=== PATIENT | male | born 1945 ===

== ENCOUNTER 2022-09-28 10:13 | Inpatient (IN) | payer OTHER ==
[~2022-09-28] VITALS: Ht 180.3 cm; Wt 81.6 kg
[2022-10-04] MEDS ORDERED: FERROUS SULFAT325 MG (08:25)
[2022-10-04] MEDS ORDERED: PANTOPRAZOLE SO40 MG (08:25)
[2022-10-05] MEDS ORDERED: LEVOFLOXACIN500 MG PO (08:04)
[2022-10-05] MEDS ORDERED: PEPCID AC20 MG PO (08:04)
[2022-10-05] MEDS ORDERED: TRAM1TAB98 PO (08:04)
== END 2022-10-05 11:39 | disposition home or self-care (01) | DRG 334 ==
LOC: O/R 10-04 06:00 → SURH 10-04 06:00
PROVIDERS: ADMIT Surgery; ATTEND Surgery
PROC: 0DJD8ZZ Inspection of Lower Intestinal Tract, Via Natural or Artificial Opening Endoscopic (ICD-10-PCS; 2022-10-04)
PROC: 3E0T3BZ Introduction of Anesthetic Agent into Peripheral Nerves and Plexi, Percutaneous Approach (ICD-10-PCS; 2022-10-04)
PROC: 0DBP4ZZ Excision of Rectum, Percutaneous Endoscopic Approach (ICD-10-PCS; principal; 2022-10-04 10:30)
DX: D12.8 Benign neoplasm of rectum (principal); K62.82 Dysplasia of anus; Z20.822 Contact with and (suspected) exposure to COVID-19
CPT/HCPCS: 0184T; 45300; 64430

== ENCOUNTER 2024-08-09 10:00 | Inpatient (IN) | payer OTHER ==
[~2024-08-09] VITALS: Ht 182.9 cm; Wt 77.6 kg
[~2024-08-09 10:00] MED LIST: FERROUS SULFAT325 MG; LEVOFLOXACIN500 MG PO; PANTOPRAZOLE SO40 MG; PEPCID AC20 MG PO; TRAM1TAB98 PO
[2024-08-09] MEDS ORDERED: CASODEX50 MG PO (12:37)
[2024-08-09] MEDS ORDERED: PEPCID AC20 MG PO (12:37)
[2024-08-09 12:43] VITALS: BP 200/110
[2024-08-09 12:44] VITALS: BP 180/100
[2024-08-16] MEDS ORDERED: POVIDONE-IODINE 118 ML BOTT TOP ONE (06:58)
[2024-08-16] MEDS ORDERED: LIDOCAINE HCL 1%/EPINEPHRINE 20ML VIAL IJ ONE (06:58)
[2024-08-16] MEDS ORDERED: DIBUCAINE 30 GM TUBE ONE (06:58)
[2024-08-16] MEDS ORDERED: HEMOSTATIC MATRIX 1 KIT KIT TOP ONE (06:58)
[2024-08-16] MEDS ORDERED: CEFTRIAXONE SODIUM 2,000 MG VIAL ONE (06:58)
[2024-08-16] MEDS ORDERED: BUPIVACAINE HCL/MPF 0.5% 30ML VIAL ONE (06:58)
[2024-08-16] MEDS ORDERED: METRONIDAZOLE/SODIUM CHLORIDE 500 MG/100 ML PIGGYBACK IV ONE (06:59)
[2024-08-16] MEDS ORDERED: DEXTROSE 50 % IN WATER 0.5 G/ML DISP.SYRIN IV PRN (08:30)
[2024-08-16] MEDS ORDERED: MORPHINE SULFATE 4 MG/ML CARTRIDGE IV PRN (08:30)
[2024-08-16] MEDS ORDERED: OxyCODONE HCL 5 MG TABLET (ROXICODONE) PO PRN (08:30)
[2024-08-16] MEDS ORDERED: ONDANSETRON HCL 2 MG/ML VIAL IV PRN (08:30)
[2024-08-16] MEDS ORDERED: 0.9 % SODIUM CHLORIDE 1,000 ML IV SCH (08:30)
[2024-08-16] MEDS ORDERED: GABAPENTIN 300 MG CAPSULE PO SCH (09:00)
[2024-08-16] MEDS ORDERED: FAMOTIDINE/PF 20 MG/2 ML VIAL IV PUSH SCH (09:00)
[2024-08-16] MEDS ORDERED: METRONIDAZOLE/SODIUM CHLORIDE 500 MG/100 ML PIGGYBACK IV SCH (09:00)
[2024-08-16] MEDS ORDERED: CELECOXIB 200 MG CAPSULE PO SCH (09:00)
[2024-08-16] MEDS ORDERED: HYOSCYAMINE SULFATE 0.125 MG TAB.SUBL SL SCH (09:00)
[2024-08-16 09:15] LABS: HEMATOCRIT 38.8 % (39.0-48.0); HEMOGLOBIN 13.1 g/dL (13-16.00); MEAN CELL VOLUME 94.3 fL (80.0-100.00); MEAN CORPUSCULAR HEMOGLOBIN 31.8 pg (27.00-32.0); MEAN CORPUSCULAR HGB CONC 33.7 g/dl (32.0-36.0); PLATELET COUNT 170 K/uL (150-450); RED BLOOD COUNT 4.11 M/uL (4.00-6.00); RED CELL DISTRIBUTION WIDTH 12.5 % (11.5-14.5)
[2024-08-16 10:16] LABS: ALBUMIN 3.6 gm/dL (3.4-5.0); CREATININE SERUM 1.58 mg/dL (0.70-1.30); GFR 42.74; MAGNESIUM 2.1 mg/dL (1.8-2.4); PHOSPHOROUS 3.2 mg/dL (2.5-4.9); POTASSIUM 4.37 mEq/L (3.5-5.1)
[2024-08-16] MEDS ORDERED: ACETAMINOPHEN 500 MG GEL..CAP PO SCH (14:00)
[2024-08-16 16:22] VITALS: BP 153/77; O2SAT 96
[2024-08-16] MEDS ORDERED: POLYETHYLENE GLYCOL 3350 17 GM BLIST.PACK PO SCH (17:00)
[2024-08-17] VITALS: BP 98/50; O2SAT 95
[2024-08-17 01:59] VITALS: BP 127/56
[2024-08-17 07:04] LABS: HEMATOCRIT 39.3 % (39.0-48.0); HEMOGLOBIN 13.3 g/dL (13-16.00); MEAN CELL VOLUME 93.2 fL (80.0-100.00); MEAN CORPUSCULAR HEMOGLOBIN 31.5 pg (27.00-32.0); MEAN CORPUSCULAR HGB CONC 33.8 g/dl (32.0-36.0); PLATELET COUNT 140 K/uL (150-450); RED BLOOD COUNT 4.22 M/uL (4.00-6.00); RED CELL DISTRIBUTION WIDTH 12.7 % (11.5-14.5)
[2024-08-17] MEDS ORDERED: TRAM1TAB98 PO (07:20)
[2024-08-17] MEDS ORDERED: RECTICARE30 GM TOP (07:21)
[2024-08-17 07:41] LABS: ALBUMIN 3.2 gm/dL (3.4-5.0); CALCIUM 8.8 mg/dL (8.5-10.1); CREATININE SERUM 1.48 mg/dL (0.70-1.30); GFR 46.09; MAGNESIUM 2.1 mg/dL (1.8-2.4); PHOSPHOROUS 3.7 mg/dL (2.5-4.9); POTASSIUM 4.07 mEq/L (3.5-5.1)
[2024-08-17 08:00] VITALS: BP 119/54; O2SAT 97
[2024-08-17] MEDS ORDERED: ENOXAPARIN SODIUM 40 MG/0.4 ML SYRINGE SUBCUTANEO SCH (17:00)
[2024-08-18] MEDS ORDERED: ENOXAPARIN SODIUM 40 MG/0.4 ML SYRINGE SUBCUTANEO SCH (09:00)
== END 2024-08-17 11:28 | disposition home or self-care (01) | DRG 395 ==
LOC: O/R 08-16 05:30 → SURG 08-16 09:45 → SURH 08-16 10:00 → SURG 08-17 11:28
PROVIDERS: ADMIT Surgery; ATTEND Surgery
PROC: 3E0T3BZ Introduction of Anesthetic Agent into Peripheral Nerves and Plexi, Percutaneous Approach (ICD-10-PCS; 2024-08-16)
PROC: 0DBP8ZZ Excision of Rectum, Via Natural or Artificial Opening Endoscopic (ICD-10-PCS; principal; 2024-08-16 10:45)
DX: D12.8 Benign neoplasm of rectum (principal); D12.5 Benign neoplasm of sigmoid colon; K76.9 Liver disease, unspecified; D37.5 Neoplasm of uncertain behavior of rectum
CPT/HCPCS: 0184T; 64430